=== PATIENT | female | born 1980 ===

== ENCOUNTER 2019-05-08 14:59 | Inpatient (IN) | payer OTHER ==
[~2019-05-08] VITALS: Ht 162.6 cm; Wt 3.2 kg
[~2019-05-08 14:59] MED LIST: ATABEX PRENATAL1 TAB PO
[2019-05-13] MEDS ORDERED: IRON325 MG PO (07:18)
[2019-05-13] MEDS ORDERED: ASA81 MG PO (07:19)
== END 2019-05-16 11:28 | disposition home or self-care (01) | DRG 788 ==
LOC: O/R 05-13 06:15 → LDR 05-13 07:00 → SURG-SUITE 05-13 14:10 → OB/GYN 05-13 14:16 → LDR 05-13 14:33 → OB/GYN 05-16 11:28
PROVIDERS: ADMIT Specialist
PROC: 4A1HXCZ Monitoring of Products of Conception, Cardiac Rate, External Approach (ICD-10-PCS; 2019-05-13)
PROC: 10D00Z1 Extraction of Products of Conception, Low, Open Approach (ICD-10-PCS; principal; 2019-05-13 07:00)
DX: O82 Encounter for cesarean delivery without indication (principal); Z3A.39 39 weeks gestation of pregnancy; Z37.0 Single live birth